=== PATIENT | female | born 1995 | race Caucasian/White ===

== ENCOUNTER 2016-11-11 03:02 | Emergency (ER) | payer SELFPAY ==
[~2016-11-11] VITALS: Ht 165.1 cm; Wt 56.7 kg
[2016-11-11] MEDS ORDERED: IV SET PRIMARY 1 EA INFUS.SET MC ONE (03:18)
[2016-11-11] MEDS ORDERED: IV NS 0.9% 1,000 ML ONE ×2 (03:18→04:12)
[2016-11-11] MEDS ORDERED: IV NS 0.9% 1,000 ML BAG IV ONE ×2 (03:30→04:30)
--- NOTE | 2016-11-11 03:39 | NUR ---
21-year-old female who presents to the emergency department acutely intoxicated. pt apparently was drinking with her friends and had too much to drink. Her friend dropped her off [place] the [facility] [place]. bp seems low, ns bolus ongoing. keep monitoring...
--- NOTE | 2016-11-11 05:17 | NUR ---
PT READY TO DISCHARGE , PT'S SISTER CALLED LEFT MESSAGE TO [employer] TECHNICIAN .
[2016-11-11 06:37] VITALS: BP 106/69
--- NOTE | 2016-11-11 06:39 | NUR ---
Patient discharged to home in stable condition. Written and verbal after care instructions given. Patient verbalizes understanding of instruction.IV removed. Catheter intact and site benign. Pressure and 4x4 applied to site. No bleeding noted. pt ambulatory with a steady gait
== END 2016-11-11 03:12 | disposition home or self-care (01) ==
LOC: ER 03:06
DX: F10.129 Alcohol abuse with intoxication, unspecified (principal)
CPT/HCPCS: 82962; 96360; 96361; 99284; A4606; J7030 ×2; Z7610